=== PATIENT | female | born 1970 | race Caucasian/White ===

== ENCOUNTER 2018-11-14 13:19 | Inpatient (IN) | payer OTHER, MEDICAID ==
[~2018-11-14] VITALS: Ht 160 cm; Wt 59.0 kg
[2018-11-14] MEDS ORDERED: ONDANSETRON 4MG ODT PO STA (14:49)
[2018-11-14] MEDS ORDERED: MAGNESIUM/ALUMINUM HYDROXIDE/SIMETHICONE 30ML UDC PO STA (14:49)
[2018-11-14] MEDS ORDERED: VISCOUS LIDOCAINE 2% 15 ML UDC MM PRN (15:00)
[2018-11-14] MEDS ORDERED: DICYCLOMINE HCL 10MG CAPSULE PO ONE (15:00)
[2018-11-14 15:27] LABS: CLARITY URINE CLEAR (CLEAR); COLOR URINE DARK YELLOW (YELLOW); KETONES URINE 2+ (NEGATIVE); LEUKOCYTE ESTERASE URINE 1+ (NEGATIVE); NITRITE URINE NEGATIVE (NEGATIVE); OCCULT BLOOD URINE 2+ (NEGATIVE); PROTEIN URINE TRACE (NEGATIVE); SPECIFIC GRAVITY URINE 1.026 (1.005-1.030)
[2018-11-14 15:27] LABS: HEMATOCRIT. 40.2 % (36.0-48.0); HEMOGLOBIN. 13.4 g/dL (12.0-16.0); MEAN CORPUSCULAR HEMOGLOBIN 28.2 pg (28.0-32.0); MEAN CORPUSCULAR VOLUME 84.9 fL (81.0-99.0); MEAN PLATELET VOLUME 7.9 fl (7.4-10.4); PLATELET 241 x1000/uL (130-400); RED BLOOD CELL COUNT 4.73 mill/uL (4.2-5.4); RED CELL DISTRIBUTION WIDTH 15.7 % (11.6-14.6)
[2018-11-14 15:33] LABS: CHLORIDE 101 mEq/L (98-107)
[2018-11-14 15:50] LABS: PLATELET ESTIMATE NORMAL
[2018-11-14] MEDS ORDERED: FENTANYL CITRATE/PF 50MCG/ML 2ML VIAL IV ONE (17:15)
[2018-11-14] MEDS ORDERED: SODIUM CHLORIDE 0.9% 1,000 ML IV ONE (17:15)
[2018-11-14] MEDS ORDERED: LEVOFLOXACIN 750MG PREMIX 150 ML IV ONE (17:30)
[2018-11-14] MEDS ORDERED: METRONIDAZOLE 500 MG PREMIX 100 ML IV ONE (17:30)
[2018-11-14 20:00] VITALS: BP 116/71
[2018-11-14] MEDS ORDERED: MAGNESIUM/ALUMINUM HYDROXIDE/SIMETHICONE 30ML UDC PO PRN (20:45)
[2018-11-14] MEDS ORDERED: ONDANSETRON HCL 4MG/2ML INJ IV PRN (20:45)
[2018-11-14] MEDS ORDERED: ACETAMINOPHEN 650MG/20.3ML UDC GT PRN (20:45)
[2018-11-14] MEDS ORDERED: IPRATROPIUM/ALBUTEROL 0.5-3(2.5)MG/3ML NEB INH PRN (20:45)
[2018-11-14] MEDS ORDERED: HYDROCODONE/ACETAMINOPHEN 5/325MG TABLET PO PRN (20:45)
[2018-11-14] MEDS ORDERED: ACETAMINOPHEN 325MG TABLET PO PRN (20:45)
[2018-11-14] MEDS ORDERED: NA PHOS,M-B/NA PHOS,DI-BA ENEMA 118ML PR PRN (20:45)
[2018-11-14] MEDS ORDERED: GUAIFENESIN 200MG/10ML SUGAR FREE UDC PO PRN (20:45)
[2018-11-14] MEDS ORDERED: DOCUSATE SODIUM 100MG CAPSULE PO PRN (20:45)
[2018-11-14] MEDS ORDERED: CLONIDINE 0.1MG TABLET PO PRN (20:45)
[2018-11-14] MEDS ORDERED: DIPHENHYDRAMINE 50MG/ML VIAL IV PRN (20:45)
[2018-11-14] MEDS ORDERED: ACETAMINOPHEN 650MG SUPP PR PRN (20:45)
[2018-11-14] MEDS ORDERED: MORPHINE SULFATE 10 MG/ML CPJ IV PRN (21:00)
[2018-11-14 21:38] LABS: HEPATITIS B SURFACE ANTIGEN NEGATIVE
[2018-11-14 22:08] LABS: HEPATITIS A AB IGM NEGATIVE (NEGATIVE)
[2018-11-14] MEDS: ENOXAPARIN 40MG/0.4ML SYR SUBCUT SCH (22:29)
[2018-11-14] MEDS: PANTOPRAZOLE SODIUM 40 MG/VIAL IV SCH (22:29)
[2018-11-14] MEDS: SODIUM CHLORIDE 0.9% INJ 3ML FLUSH IVF SCH (22:30)
[2018-11-14] MEDS: METOCLOPRAMIDE HCL 10MG/2ML VIAL IV SCH (23:13)
[2018-11-14] MEDS: DEXT 5%/0.45% NACL 1000ML 1,000 ML IV SCH (23:13)
[2018-11-14 23:27] VITALS: BP 116/71
[2018-11-15] VITALS: BP_SYST 122; BP_SYST 132; BP_DIAS 78; BP_DIAS 84
[2018-11-15 04:00] VITALS: BP 130/81
[2018-11-15] MEDS ORDERED: OMEP10CA4 PO (04:37)
[2018-11-15] MEDS ORDERED: MAG-55 PO (04:37)
[2018-11-15] MEDS: METOCLOPRAMIDE HCL 10MG/2ML VIAL IV SCH ×4 (05:15→23:02)
[2018-11-15] MEDS: SODIUM CHLORIDE 0.9% INJ 3ML FLUSH IVF SCH ×3 (05:15→21:25)
[2018-11-15] MEDS: DEXT 5%/0.45% NACL 1000ML 1,000 ML IV SCH ×2 (06:42→18:38)
[2018-11-15 08:00] VITALS: BP 128/70
[2018-11-15] MEDS: PANTOPRAZOLE SODIUM 40 MG/VIAL IV SCH (08:41)
[2018-11-15] MEDS ORDERED: INFLUENZA VIRUS VACCINE(AFLURIA) 0.5ML SYR IM ONE (10:00)
[2018-11-15 11:14] LABS: BASOPHILS % 0.2 % (0.0-2.0); HEMATOCRIT. 39.7 % (36.0-48.0); HEMOGLOBIN. 13.2 g/dL (12.0-16.0); MEAN CORPUSCULAR HEMOGLOBIN 28.2 pg (28.0-32.0); MEAN CORPUSCULAR VOLUME 84.8 fL (81.0-99.0); MEAN PLATELET VOLUME 8.2 fl (7.4-10.4); NEUTROPHILS % 78.8 % (40.0-76.0); PLATELET 224 x1000/uL (130-400); RED BLOOD CELL COUNT 4.68 mill/uL (4.2-5.4); RED CELL DISTRIBUTION WIDTH 15.6 % (11.6-14.6)
[2018-11-15 11:26] LABS: CHLORIDE 103 mEq/L (98-107)
[2018-11-15 11:37] LABS: LDL CHOLESTEROL 79 mg/dL (5-100)
[2018-11-15 11:41] LABS: HDL CHOLESTEROL 51 mg/dL (40-59)
[2018-11-15] MEDS ORDERED: DIATR MEGLU/DIATRIZOATE SOLN 30ML PO SCH (12:00)
[2018-11-15] MEDS: LEVOFLOXACIN 500MG PREMIX 100 ML IV SCH (12:26)
[2018-11-15] MEDS ORDERED: DIATR MEGLU/DIATRIZOATE SOLN 30ML PO ONE (12:30)
[2018-11-15 20:00] VITALS: BP 123/71
[2018-11-15] MEDS ORDERED: POTASSIUM CHLORIDE 20MEQ TABLET SR PO NR (20:00)
[2018-11-15] MEDS: ENOXAPARIN 40MG/0.4ML SYR SUBCUT SCH (20:22)
[2018-11-16] VITALS: BP 127/83
[2018-11-16 04:00] VITALS: BP 110/68
[2018-11-16] MEDS: METOCLOPRAMIDE HCL 10MG/2ML VIAL IV SCH ×2 (05:00→11:56)
[2018-11-16] MEDS: SODIUM CHLORIDE 0.9% INJ 3ML FLUSH IVF SCH ×2 (05:04→14:00)
[2018-11-16] MEDS: PANTOPRAZOLE SODIUM 40 MG/VIAL IV SCH (09:29)
[2018-11-16] MEDS: LEVOFLOXACIN 500MG PREMIX 100 ML IV SCH (11:56)
[2018-11-16] MEDS: DEXT 5%/0.45% NACL 1000ML 1,000 ML IV SCH (12:29)
[2018-11-16 12:41] LABS: BASOPHILS % 0.7 % (0.0-2.0); EOSINOPHILS % 0.8 % (0.0-5.0); HEMATOCRIT. 39.6 % (36.0-48.0); HEMOGLOBIN. 13.1 g/dL (12.0-16.0); MEAN CORPUSCULAR HEMOGLOBIN 28.3 pg (28.0-32.0); MEAN CORPUSCULAR VOLUME 85.4 fL (81.0-99.0); MEAN PLATELET VOLUME 8.1 fl (7.4-10.4); NEUTROPHILS % 69.5 % (40.0-76.0); PLATELET 223 x1000/uL (130-400); RED BLOOD CELL COUNT 4.64 mill/uL (4.2-5.4); RED CELL DISTRIBUTION WIDTH 15.7 % (11.6-14.6)
[2018-11-16 12:50] LABS: CHLORIDE 104 mEq/L (98-107)
[2018-11-16] MEDS ORDERED: LEVO500T2 MT (17:01)
[2018-11-16 18:00] VITALS: BP 117/68
== END 2018-11-16 18:42 | disposition home or self-care (01) | DRG 241 ==
LOC: ER 13:19 → EDBEDREQ 17:58 → EDBEDREQTM 17:58 → ENRESERV 19:44 → 6EST 20:33
PROVIDERS: ADMIT Family Medicine; ATTEND Family Medicine
DX: K29.70 Gastritis, unspecified, without bleeding (principal); R78.81 Bacteremia; K37 Unspecified appendicitis; E44.1 Mild protein-calorie malnutrition; R74.0 Nonspecific elevation of levels of transaminase and lactic acid dehydrogenase [LDH]; N39.0 Urinary tract infection, site not specified; K21.9 Gastro-esophageal reflux disease without esophagitis; Z88.0 Allergy status to penicillin; Z90.49 Acquired absence of other specified parts of digestive tract; Z79.899 Other long term (current) drug therapy; Z68.23 Body mass index [BMI] 23.0-23.9, adult
CPT/HCPCS: 36415; 74176; 74181; 76700; 80061; 80076; 81025; 83880; 86705; 86709; 86803; 87077; 87186; 87340; 90686; 96365; 96368; 96375; 99285; C9113; J1650; J1956; J2765; J3010; J3490; J7030; Q0162

== ENCOUNTER 2021-12-16 11:21 | Emergency (ER) | payer MEDICAID ==
[~2021-12-16] VITALS: Ht 167.6 cm; Wt 55.0 kg
[~2021-12-16 11:21] MED LIST: LEVO500T2 MT; MAG-55 PO; OMEP10CA5 PO
[2021-12-16] MEDS ORDERED: ACETAMINOPHEN WITH CODEINE 300/30MG TABLET PO ONE (12:00)
[2021-12-16] MEDS ORDERED: HYDR-4001 MT (15:20)
[2021-12-16] MEDS ORDERED: IBUP-2029 MT (15:20)
[2021-12-16 15:30] VITALS: BP 123/67
== END 2021-12-16 15:31 | disposition home or self-care (01) ==
LOC: ER 11:21
DX: S52.591A Other fractures of lower end of right radius, initial encounter for closed fracture (principal); S93.491A Sprain of other ligament of right ankle, initial encounter; M25.511 Pain in right shoulder; M79.641 Pain in right hand; M25.561 Pain in right knee; W17.89XA Other fall from one level to another, initial encounter; Y93.89 Activity, other specified; Y92.89 Other specified places as the place of occurrence of the external cause
CPT/HCPCS: 29125; 73030; 73110; 73130; 73560; 73610; 73630; 81025; 99284; A4565

== ENCOUNTER 2022-07-11 10:53 | Emergency (ER) | payer MEDICAID ==
[~2022-07-11] VITALS: Ht 160 cm; Wt 62.0 kg
[~2022-07-11 10:53] MED LIST changes: +HYDR-4001 MT; +IBUP-2029 MT
[2022-07-11 11:25] VITALS: BP 125/82
[2022-07-11] MEDS ORDERED: IBUPROFEN 600MG TABLET PO ONE (12:45)
[2022-07-11] MEDS ORDERED: KETOROLAC 15MG/ML VIAL IM ONE (13:30)
[2022-07-11] MEDS ORDERED: ONDANSETRON HCL 4MG TABLET PO ONE (13:30)
== END 2022-07-11 15:10 | disposition home or self-care (01) ==
LOC: ER 10:53
DX: J06.9 Acute upper respiratory infection, unspecified (principal)
CPT/HCPCS: 96372; 99283; J1885; Q0162

== ENCOUNTER 2024-09-11 16:21 | Emergency (ER) | payer MEDICARE ==
[~2024-09-11] VITALS: Ht 157.5 cm; Wt 60.0 kg
[2024-09-11 16:24] VITALS: O2SAT 97
[2024-09-11 16:35] VITALS: BP 136/92; PULSE 91; RESP 18; TEMP 98.5; O2SAT 100
[2024-09-11 16:54] LABS: BASOPHILS % 0.5 % (0.0-2.0); HEMATOCRIT. 44.8 % (36.0-48.0); HEMOGLOBIN. 15.5 g/dL (12.0-16.0); LYMPHOCYTES % 11.3 % (20.0-50.0); MEAN CORPUSCULAR HEMOGLOBIN 30.9 pg (28.0-32.0); MEAN CORPUSCULAR HGB CONC 34.5 g/dL (31.0-37.0); MEAN CORPUSCULAR VOLUME 89.6 fL (81.0-99.0); MEAN PLATELET VOLUME 7.5 fl (7.4-10.4); MONOCYTES % 1.6 % (2.0-8.0); NEUTROPHILS % 86.6 % (40.0-76.0); PLATELET 289 x1000/uL (130-400); RED CELL DISTRIBUTION WIDTH 13.1 % (11.6-14.6); WHITE BLOOD COUNT 8.3 x1000/uL (4.5-11.0)
[2024-09-11 17:00] LABS: CHLORIDE 105 mEq/L (98-107); POTASSIUM 3.6 mEq/L (3.5-5.1); SODIUM 140 mEq/L (136-145)
[2024-09-11 17:01] LABS: CALCIUM 9.8 mg/dL (8.7-10.4); CARBON DIOXIDE 29 mEq/L (21-32)
[2024-09-11 17:06] LABS: CREATININE 0.7 mg/dL (0.6-1.0); GLUCOSE 131 mg/dL (70-105); UREA NITROGEN BLOOD 13 mg/dL (9-23)
[2024-09-11 17:08] LABS: ALANINE AMINOTRANSFERASE 53 IU/L (10-49); ALBUMIN 4.4 g/dL (3.2-4.8); ASPARTATE AMINOTRANSFERASE 28 IU/L (<34); BILIRUBIN DIRECT 0.2 mg/dL (<=3.0); BILIRUBIN TOTAL 0.7 mg/dL (0.1-1.0); PROTEIN TOTAL 7.6 g/dL (6.0-8.3)
[2024-09-11 17:13] LABS: TROPONIN I HIGH SENSITIVITY < 4 ng/L (3.0-34)
[2024-09-11] MEDS: ACETAMINOPHEN 325MG TABLET PO NR (20:51)
[2024-09-11 21:09] LABS: CLARITY URINE CLEAR (CLEAR); COLOR URINE YELLOW (YELLOW)
[2024-09-11 21:10] LABS: GLUCOSE URINE NEGATIVE (NEGATIVE); KETONES URINE 1+ (NEGATIVE); PH URINE 5.5 (4.5-8.0); PROTEIN URINE NEGATIVE (NEGATIVE); SPECIFIC GRAVITY URINE 1.023 (1.005-1.030)
[2024-09-11 21:11] LABS: LEUKOCYTE ESTERASE URINE TRACE (NEGATIVE); NITRITE URINE NEGATIVE (NEGATIVE); OCCULT BLOOD URINE 2+ (NEGATIVE)
[2024-09-11 21:26] LABS: BACTERIA URINE 2+; SQUAMOUS EPITHELIAL CELL URINE 1+ /lpf (RARE/1+)
[2024-09-11 21:27] LABS: MUCUS URINE 2+ /lpf (< = 2+); WBC URINE 0-2 /hpf (0-2)
[2024-09-11 21:46] LABS: HCG SCREEN NEGATIVE
[2024-09-11] MEDS ORDERED: CEFP100S5 MT (23:16)
== END 2024-09-11 23:15 | disposition home or self-care (01) ==
LOC: ER 16:21
DX: N39.0 Urinary tract infection, site not specified (principal); E78.00 Pure hypercholesterolemia, unspecified; Z88.0 Allergy status to penicillin; Z90.49 Acquired absence of other specified parts of digestive tract
CPT/HCPCS: 36415; 74176; 80048; 80076; 81003; 84484; 84703; 85025; 93005; 99284